=== PATIENT | female | born 2000 | race Caucasian/White ===

== ENCOUNTER 2022-02-07 14:50 | Emergency (ER) | payer OTHER, SELFPAY ==
--- NOTE | ~2022-02-07 | CT_ITS ---
EXAMINATION: CT brain wo con DATE: 02/07/2022 15:15 INDICATION: sycope struck head TECHNIQUE: Computed tomography (CT) of the head was performed without intravenous contrast. The mA wa s adjusted according to patient size. Iterative reconstruction technique was employed. The dose-lengt h product was 605.33 mGy-cm. COMPARISON: None FINDINGS: No acute intracranial hemorrhage or extra-axial fluid collection. No hydrocephalus, mass, or herniation. No acute ischemic infarct. Unremarkable dural venous sinus attenuation. No acute osseous abnormality. The aerated spaces are clear. IMPRESSION: No acute intracranial process. Reviewed, dictated and finalized at location K.
[2022-02-07 14:51] VITALS: BP 106/66; PULSE 64; RESP 17; TEMP 36.6; O2SAT 100
--- NOTE | 2022-02-07 14:54 | ECG_ITS ---
Measurements Intervals [place] Rate: 54 P: 39 FL: 133 QRS: 64 QRSD: 88 T: 45 QT: 393 QTc: 374 Interpretive Statements SINUS BRADYCARDIA BASELINE ARTIFACT DIFFUSE J-POINT ELEVATION CONSIDER EARLY REPOLARIZATION OR PERICARDITIS BORDERLINE ECG NO PREVIOUS ECG AVAILABLE FOR COMPARISON Electronically Signed On 02-08-2022 11:06:18 CDT by Bernardo Rivera M.D.
[2022-02-07 15:08] LABS: Basophils Percent Auto 0.6 % (0.2-1.2); Eosinophils Absolute Auto 0.2 K/mm3 (0-0.3); Eosinophils Percent Auto 2.4 % (0-4.4); Hematocrit 34.9 % (37.0-47.0); Hemoglobin 11.3 g/dL (12.0-15.0); Immature Granulocyte Absolute 0.02 K/mm3 (0.00-0.031); Immature Granulocyte Percent A 0.3 % (0-0.5); Lymphocytes Absolute Auto 2.14 K/mm3 (0.9-3.2); Lymphocytes Percent Auto 33.7 % (18.3-44.2); Mean Corpuscular HGB Conc 32.4 g/dl (32-36); Mean Corpuscular Hemoglobin 30.7 pg (26-34); Mean Corpuscular Volume 94.8 fl (80-100); Mean Platelet Volume 9.5 fl (7.4-10.4); Monocytes Absolute Auto 0.6 K/mm3 (0.1-0.6); Monocytes Percent Auto 9.1 % (2.6-8.5); Neutrophils Absolute Auto 3.4 K/mm3 (1.3-6.7); Neutrophils Percent Auto 53.9 % (45.5-73.1); Platelet Count Result 370 k/mm3 (150-375); Red Blood Count 3.68 M/mm3 (4.2-5.4); Red Cell Distribution Width 12.6 % (11.5-14.5); White Blood Count 6.4 K/mm3 (4.5-10.0)
[2022-02-07 15:17] LABS: Alanine Aminotransferase 11 U/L (4-35); Albumin Level 4.2 g/dL (3.5-5.1); Alkaline Phosphatase 51 U/L (38-126); Anion Gap 7 mmol/L (8-16); Aspartate Amino Transferase 25 U/L (14-36); Bilirubin,Total 0.6 mg/dL (0.2-1.3); Blood Urea Nitrogen 10 mg/dL (7-17); Calcium 8.9 mg/dL (8.4-10.2); Carbon Dioxide 25 mmol/L (22-30); Chloride 105 mmol/L (98-107); Estimated CRCL calculation 127 ml/min; Estimated Glomerular Filt Rate > 60; Glucose 107 mg/dL (65-110); Potassium 3.6 mmol/L (3.4-5.0); Sodium 137 mmol/L (137-145)
--- NOTE | 2022-02-07 15:24 | ED.SYNCOPE ---
HPI - Syncope General Chief Complaint: Syncope Stated Complaint: syncope Time Seen by Provider: 02/07/22 14:51 Source: patient History of Present Illness HPI narrative: Patient presents with syncope. She was accompanying her father to the ER who had a segment hand injury. Report looking at the wound she felt very warm and lightheaded she stepped out and then syncopized and struck the ground. Reports she has some left shoulder pain. Pain is achy really with moving her extremity, no radiation she denies any focal numbness or weakness denies any nausea or vomiting. She denies any segment past medical history of such as cardiac disease, prior syncopal episodes, seizure disorders. Related Data Allergies Allergy/AdvReac Type Severity Reaction Status Date / Time No Known Allergies Allergy Unverified 07/06/19 12:16 Review of Systems Review of Systems: CONSTITUTIONAL: Denies fever, chills, or sweats. EYES: Denies visual changes, redness, or discharge. ENT: Denies rhinorrhea, congestion, sore throat, or otalgia. CARDIOVASCULAR: Denies chest pain, palpitations, or edema. RESPIRATORY: Denies cough or dyspnea. GASTROINTESTINAL: Denies abdominal pain, nausea, vomiting, or diarrhea. GENITOURINARY: Denies dysuria or hematuria. SKIN: Denies rash or itching. MUSCULOSKELETAL: Denies back pain, joint pain, or myalgia. NEUROLOGIC: Denies headache, numbness, current dizziness, or weakness. PSYCHIATRIC: Denies anxiety or depression. All systems reviewed & are unremarkable except as noted in HPI and below PMFSH Past Medical History Medical History (Updated 02/07/22 @ 15:34 by Reggie Muñoz MD) Patient denies significant medical history Social History Social History (Updated 02/07/22 @ 15:31 by Reggie Muñoz MD) Living arrangements: with family Exam Narrative: GENERAL: Well-appearing, well-nourished, and in no acute distress. HEAD: Normocephalic, atraumatic. EYES: PERRLA and EOMI. ENT: Nares clear, no rhinorrhea or epistaxis. Mucous membranes moist. NECK: Supple. No masses. No JVD CHEST: Clear to auscultation. No respiratory distress. No wheezes rales or rhonchi HEART: Regular rate and rhythm. No murmur heard. Normal peripheral pulses. ABDOMEN: Soft, nontender, nondistended, normal active bowel sounds. EXTREMITIES: Normal range of motion. No edema minimal tenderness palpation of the anterior aspect of the shoulder no obvious deformity no open or draining wounds. SKIN: Warm, dry, no rash. NEURO: No focal deficits. Alert and oriented x3. PSYCH: Normal mood and affect. Course Reevaluation(s) Reevaluation #1: Patient is already feeling much improved and feels like her usual self Date: 02/07/22 Time: 15:32 Reevaluation #2: Results and plan reviewed with patient and family patient family are comfortable outpatient plan. Date: 02/07/22 Time: 15:36 Vital Signs Vital signs: Vital Signs Temperature 36.6 C 02/07/22 14:51 Pulse Rate 64 02/07/22 14:51 Respiratory Rate 17 02/07/22 14:51 Blood Pressure 106/66 02/07/22 14:51 Pulse Oximetry 100 02/07/22 14:51 Temperature 36.6 C 02/07/22 14:51 Pulse Rate 63 02/07/22 15:56 Respiratory Rate 12 02/07/22 15:56 Blood Pressure 108/75 02/07/22 15:56 Pulse Oximetry 100 02/07/22 15:56 MDM - Syncope MDM Narrative Medical decision making narrative: H&P as above, vss, pt looks clinically well, exam with mild tenderness on the left shoulder patient declined plain films, labs clinically unremarkable, img without acute process, additional labs/img considered, symptomatic relief available as needed, on reevaluation pt continues to looks clinically well. Suspect vasovagal event, dns life-threatening arrhythmia, severe electrolyte abnormality, PE, dissection, seizure. plan to tx/monitor as op w/ pcm f/u findings/plan discussed with pt, pt agree/comfortable with plan, return precautions given Lab Data Result diagrams: 02/07/22 15:03 02/07/22 15:
--- NOTE | 2022-02-07 15:50 | PC.NURSE ---
Pt feeling much better after snack of peanut butter crackers and michael mist. Paper pants and disposable underwear given.
[2022-02-07 15:56] VITALS: BP 108/75; PULSE 63; RESP 12; O2SAT 100
== END 2022-02-07 16:03 | disposition home or self-care (01) ==
PROVIDERS: Emergency Provider Emergency Medicine
DX: R55 Syncope and collapse (principal); R00.1 Bradycardia, unspecified; R94.31 Abnormal electrocardiogram [ECG] [EKG]
CPT/HCPCS: 36415; 70450; 80053; 85025; 93005; 99284